=== PATIENT | male | born 1960 | race African-American/Black ===

== ENCOUNTER 2018-01-27 09:32 | Inpatient (IN) | payer MEDICAID ==
[~2018-01-27] VITALS: Ht 188 cm; Wt 130.6 kg
[2018-01-27 10:06] VITALS: BP 161/81
[2018-01-27] MEDS ORDERED: OXYC-522 PO (10:23)
[2018-01-27] MEDS ORDERED: QUET100T PO (10:23)
[2018-01-27] MEDS ORDERED: QUET200T PO (10:23)
[2018-01-27] MEDS ORDERED: AMLO-512 PO (10:23)
[2018-01-27] MEDS ORDERED: GABA-529 PO (10:23)
[2018-01-27] MEDS ORDERED: LISI-662 PO (10:23)
[2018-01-27] MEDS ORDERED: MULT-1192 PO (10:23)
[2018-01-27] MEDS ORDERED: ATOR40TA28 PO (10:23)
[2018-01-27] MEDS ORDERED: METO-558 PO (10:23)
[2018-01-27] MEDS ORDERED: DOCU250C91 PO (10:23)
[2018-01-27] MEDS ORDERED: FERR-89 PO (10:23)
[2018-01-27] MEDS ORDERED: ZOLP10TA7 PO (10:23)
[2018-01-27] MEDS ORDERED: METF500T6 PO (10:23)
[2018-01-27] MEDS ORDERED: CARI350 PO (10:23)
[2018-01-27] MEDS ORDERED: QUEtiapine FUMARATE 100 MG TABLET PO PRN (10:30)
[2018-01-27] MEDS ORDERED: ALBUTEROL SULFATE HFA 90 MCG/PUFF 8 GM INHALER IH PRN (12:00)
[2018-01-27] MEDS ORDERED: PETROLATUM,WHITE 71 GM JELLY TP PRN (12:00)
[2018-01-27] MEDS ORDERED: BENZOCAINE/MENTHOL LOZENGE MM PRN (12:00)
[2018-01-27] MEDS ORDERED: MAG HYDROX/AL HYDROX/SIMETH ES 30 ML SUSPENSION UDCUP PO PRN (12:00)
[2018-01-27] MEDS ORDERED: ACETAMINOPHEN 325 MG TABLET PO PRN (12:00)
[2018-01-27] MEDS ORDERED: LOPERAMIDE HCL 2 MG CAPSULE PO PRN (12:00)
[2018-01-27] MEDS ORDERED: MAGNESIUM HYDROXIDE SUSPENSION 30 ML UDCUP PO PRN (12:00)
[2018-01-27] MEDS ORDERED: BACITRACIN 28.4 GM OINTMENT TP PRN (12:00)
[2018-01-27] MEDS ORDERED: ONDANSETRON HCL 4 MG TABLET PO PRN (12:00)
[2018-01-27] MEDS ORDERED: CloNIDine HCL 0.1 MG TABLET PO PRN (12:00)
[2018-01-27 12:32] VITALS: BP 122/59
[2018-01-27] MEDS: QUEtiapine FUMARATE 100 MG TABLET PO SCH (12:53)
[2018-01-27] MEDS: LORazepam 2 MG TABLET PO PRN (13:26)
[2018-01-27] MEDS: OxyCODONE HCL/ACETAMINOPHEN 10-325 MG TABLET PO PRN ×2 (14:55→20:14)
[2018-01-27 14:57] VITALS: BP 140/91
[2018-01-27 16:12] VITALS: BP 156/97
[2018-01-27] MEDS: CARISOPRODOL 350 MG TABLET PO PRN (16:12)
[2018-01-27] MEDS: GABAPENTIN 100 MG CAPSULE PO SCH (16:12)
[2018-01-27] MEDS ORDERED: CARISOPRODOL 350 MG TABLET PO SCH (17:00)
[2018-01-27] MEDS: FERROUS SULFATE 325 MG EC TABLET PO SCH (17:07)
[2018-01-27] MEDS: MetFORMIN HCL 500 MG TABLET PO SCH (17:07)
[2018-01-27 17:12] VITALS: BP 130/60
[2018-01-27] MEDS: QUEtiapine FUMARATE 300 MG TABLET PO SCH (20:14)
[2018-01-27] MEDS: ZOLPIDEM TARTRATE 10 MG TABLET PO PRN (20:15)
[2018-01-28] VITALS (7 sets, daily range): BP systolic 114–147; BP diastolic 60–82
[2018-01-28] MEDS: LORazepam 2 MG TABLET PO PRN ×3 (00:13→16:14)
[2018-01-28] MEDS: CARISOPRODOL 350 MG TABLET PO PRN ×3 (05:33→21:00)
[2018-01-28] MEDS: OxyCODONE HCL/ACETAMINOPHEN 10-325 MG TABLET PO PRN ×4 (05:33→20:00)
[2018-01-28] MEDS: MetFORMIN HCL 500 MG TABLET PO SCH ×2 (06:58→16:54)
[2018-01-28] MEDS: FERROUS SULFATE 325 MG EC TABLET PO SCH ×2 (06:58→16:55)
[2018-01-28 08:52] LABS: BASOPHILS % (AUTO) 0.9 % (0.0-2.0); EOSINOPHILS % (AUTO) 2.5 % (1.0-6.0); HEMATOCRIT 37.4 % (41-53); HEMOGLOBIN 12.5 g/dL (13.5-17.5); LYMPHOCYTES # (AUTO) 3.1 K/uL (1.0-4.8); LYMPHOCYTES % (AUTO) 34.1 % (22.0-44.0); MEAN CORPUSCULAR HEMOGLOBIN 30.5 pg (26.0-34.0); MEAN CORPUSCULAR HGB CONC 33.3 G/dL (31.0-37.0); MEAN CORPUSCULAR VOLUME 92 fL (80-100); MONOCYTES # (AUTO) 0.3 K/uL (0.1-1.0); MONOCYTES % (AUTO) 3.9 % (2.0-9.0); NEUTROPHILS # (AUTO) 5.3 K/uL (1.8-7.7); NEUTROPHILS % (AUTO) 58.6 % (40.0-70.0); PLATELET COUNT (AUTO) 354 K/uL (150-450); RED BLOOD CELL COUNT(AUTO) 4.08 MIL/uL (4.50-5.90); RED CELL DISTRIBUTION WIDTH 13.6 % (11.5-14.5)
[2018-01-28] MEDS: QUEtiapine FUMARATE 100 MG TABLET PO SCH (08:57)
[2018-01-28] MEDS: GABAPENTIN 100 MG CAPSULE PO SCH ×3 (08:57→16:14)
[2018-01-28] MEDS: DOCUSATE SODIUM 250 MG CAPSULE PO SCH (08:57)
[2018-01-28] MEDS: OMEPRAZOLE 20 MG CAPSULE PO SCH (08:57)
[2018-01-28] MEDS: AmLODIPine BESYLATE 10 MG TABLET PO SCH (08:57)
[2018-01-28] MEDS: MULTIVITAMINS WITH MINERALS, THERAPEUTIC TABLET PO SCH (08:57)
[2018-01-28] MEDS: LISINOPRIL 20 MG TABLET PO SCH (08:57)
[2018-01-28] MEDS: ATORVASTATIN CALCIUM 40 MG TABLET PO SCH (08:58)
[2018-01-28] MEDS: METOPROLOL SUCCINATE 50 MG ER TABLET PO SCH (08:58)
[2018-01-28] MEDS ORDERED: DOCUSATE SODIUM 100 MG CAPSULE PO SCH (09:00)
[2018-01-28 09:08] LABS: HEMOGLOBIN A1C 5.6 % (4.5-6.2)
[2018-01-28] MEDS ORDERED: NICOTINE POLACRILEX 2 MG LOZENGE PO PRN (09:15)
[2018-01-28 09:20] LABS: ALANINE AMINOTRANSFERASE 24 U/L (12-78); ALBUMIN 3.8 g/dL (3.4-5.0); ALKALINE PHOSPHATASE 130 U/L (46-116); ANION GAP 10 mmol/L (8-16); ASPARTATE AMINOTRANSFERASE 17 U/L (15-37); BILIRUBIN,TOTAL 0.4 mg/dL (0.1-1.0); CALCIUM, TOTAL 8.8 mg/dL (8.8-10.5); CARBON DIOXIDE 25 mmol/L (22-29); CHLORIDE 103 mmol/L (98-107); CHOL/HDL RATIO 4.3 (4.2-7.3); CHOLESTEROL 155 mg/dL (131-200); CREATININE 1.24 mg/dL (0.60-1.30); FREE T4 (FREE THYROXINE) 0.71 ng/dL (0.76-1.46); GLOMERULAR FILTR. RATE CALC > 60 mL/min (>60); GLUCOSE,RANDOM 125 mg/dL (70-110); HDL CHOLESTEROL 36 mg/dL (40-60); LDL CHOL (CALC.) 95 mg/dL (0-130); POTASSIUM 3.9 mmol/L (3.5-5.1); SODIUM SERUM 138 mmol/L (136-145); THYROID STIMULATING HORMONE 1.46 uIU/mL (0.36-3.74); TOTAL PROTEIN, SERUM 7.8 g/dL (6.4-8.2); TRIGLYCERIDES 121 mg/dL (15-150); UREA NITROGEN, BLOOD 9 mg/dL (7-18)
[2018-01-28] MEDS: QUEtiapine FUMARATE 300 MG TABLET PO SCH (20:00)
[2018-01-28] MEDS: ZOLPIDEM TARTRATE 10 MG TABLET PO PRN (20:59)
[2018-01-29] VITALS: BP 145/87
[2018-01-29] MEDS: LORazepam 2 MG TABLET PO PRN ×2 (00:07→09:00)
[2018-01-29] MEDS: OxyCODONE HCL/ACETAMINOPHEN 10-325 MG TABLET PO PRN ×2 (03:12→08:11)
[2018-01-29] MEDS: CARISOPRODOL 350 MG TABLET PO PRN ×2 (05:29→10:37)
[2018-01-29] MEDS: FERROUS SULFATE 325 MG EC TABLET PO SCH (07:12)
[2018-01-29] MEDS: MetFORMIN HCL 500 MG TABLET PO SCH (07:13)
[2018-01-29] MEDS: LISINOPRIL 20 MG TABLET PO SCH (08:11)
[2018-01-29] MEDS: AmLODIPine BESYLATE 10 MG TABLET PO SCH (08:11)
[2018-01-29] MEDS: OMEPRAZOLE 20 MG CAPSULE PO SCH (08:11)
[2018-01-29] MEDS: DOCUSATE SODIUM 250 MG CAPSULE PO SCH (08:11)
[2018-01-29] MEDS: GABAPENTIN 100 MG CAPSULE PO SCH (08:11)
[2018-01-29] MEDS: METOPROLOL SUCCINATE 50 MG ER TABLET PO SCH (08:11)
[2018-01-29] MEDS: QUEtiapine FUMARATE 100 MG TABLET PO SCH (08:11)
[2018-01-29] MEDS: ATORVASTATIN CALCIUM 40 MG TABLET PO SCH (08:11)
[2018-01-29] MEDS: MULTIVITAMINS WITH MINERALS, THERAPEUTIC TABLET PO SCH (08:12)
[2018-01-29 08:14] VITALS: BP 151/95
[2018-01-29 10:37] VITALS: BP 138/84
[2018-01-29] MEDS ORDERED: METO-558 PO (11:20)
[2018-01-29] MEDS ORDERED: FERR-89 PO (11:20)
[2018-01-29] MEDS ORDERED: QUET300T2 PO (11:20)
[2018-01-29] MEDS ORDERED: ATOR40TA28 PO (11:20)
== END 2018-01-29 12:20 | disposition home or self-care (01) | DRG 750 ==
LOC: B3A 10:37 → B2S 12:21
PROVIDERS: ATTEND Psychiatry & Neurology Child & Adolescent Psychiatry
DX: F20.0 Paranoid schizophrenia (principal); I10 Essential (primary) hypertension; E55.9 Vitamin D deficiency, unspecified; E66.9 Obesity, unspecified; F17.200 Nicotine dependence, unspecified, uncomplicated; G89.29 Other chronic pain; J44.9 Chronic obstructive pulmonary disease, unspecified; K21.9 Gastro-esophageal reflux disease without esophagitis; K59.00 Constipation, unspecified; F41.9 Anxiety disorder, unspecified; Z88.8 Allergy status to other drugs, medicaments and biological substances
CPT/HCPCS: 82306; 83036; 84439; 84443

== ENCOUNTER 2018-12-07 13:26 | Inpatient (IN) | payer MEDICAID ==
[~2018-12-07] VITALS: Ht 188 cm; Wt 133.9 kg
[~2018-12-07 13:26] MED LIST: AMLO-512 PO; ATOR40TA28 PO; FERR-89 PO; GABA-529 PO; LISI-662 PO; METF-960 PO; METO-558 PO; QUET100T PO; QUET300T2 PO
[2018-12-07] MEDS ORDERED: QUET300T2 PO ×2 (14:47)
[2018-12-07] MEDS ORDERED: VITAD50000 PO (14:47)
[2018-12-07] MEDS ORDERED: METO-558 PO (14:47)
[2018-12-07] MEDS ORDERED: METF-960 PO (14:47)
[2018-12-07] MEDS ORDERED: LISI-662 PO (14:47)
[2018-12-07] MEDS ORDERED: AMLO-511 PO (14:47)
[2018-12-07] MEDS ORDERED: ASPI81 PO (14:48)
[2018-12-07] MEDS ORDERED: LORA10TA7 PO (14:48)
[2018-12-07] MEDS ORDERED: DOCU250C91 PO (14:48)
[2018-12-07] MEDS ORDERED: MULT-1203 PO (14:48)
[2018-12-07 14:52] VITALS: BP 163/95
[2018-12-07] MEDS ORDERED: QUEtiapine FUMARATE 100 MG TABLET PO PRN (15:00)
[2018-12-07] MEDS ORDERED: OXYC-43 PO (15:58)
[2018-12-07 16:24] VITALS: BP 169/86
[2018-12-07 17:35] VITALS: BP 167/88
[2018-12-07] MEDS: OxyCODONE HCL/ACETAMINOPHEN 10-325 MG TABLET PO PRN (17:36)
[2018-12-07] MEDS: GABAPENTIN 100 MG CAPSULE PO SCH (17:36)
[2018-12-07] MEDS ORDERED: GLUCAGON,HUMAN RECOMBINANT 1 MG VIAL IM PRN (18:15)
[2018-12-07] MEDS ORDERED: INSULIN LISPRO 100 UNITS/ML SQ PRN (18:15)
[2018-12-07] MEDS: AmLODIPine BESYLATE 5 MG TABLET PO SCH (19:15)
[2018-12-07] MEDS: LISINOPRIL 20 MG TABLET PO SCH (19:15)
[2018-12-07] MEDS: QUEtiapine FUMARATE 300 MG TABLET PO SCH (20:13)
[2018-12-07] MEDS ORDERED: BENZOCAINE/MENTHOL LOZENGE MM PRN (20:30)
[2018-12-07] MEDS ORDERED: CloNIDine HCL 0.1 MG TABLET PO PRN (20:30)
[2018-12-07] MEDS ORDERED: LOPERAMIDE HCL 2 MG CAPSULE PO PRN (20:30)
[2018-12-07] MEDS ORDERED: PETROLATUM,WHITE 28 GM JELLY TP PRN (20:30)
[2018-12-07] MEDS ORDERED: MAG HYDROX/AL HYDROX/SIMETH ES 30 ML SUSPENSION UDCUP PO PRN (20:30)
[2018-12-07] MEDS ORDERED: ONDANSETRON HCL 4 MG TABLET PO PRN (20:30)
[2018-12-07] MEDS ORDERED: ACETAMINOPHEN 325 MG TABLET PO PRN (20:30)
[2018-12-07] MEDS ORDERED: BACITRACIN 28.4 GM OINTMENT TP PRN (20:30)
[2018-12-07] MEDS ORDERED: ALBUTEROL SULFATE HFA 90 MCG/PUFF 8 GM INHALER IH PRN (20:30)
[2018-12-07] MEDS ORDERED: MAGNESIUM HYDROXIDE SUSPENSION 30 ML UDCUP PO PRN (20:30)
[2018-12-07] MEDS: ZOLPIDEM TARTRATE 10 MG TABLET PO PRN (20:49)
[2018-12-07 23:14] VITALS: BP 122/66
[2018-12-08 01:45] VITALS: BP 153/100
[2018-12-08] MEDS: OxyCODONE HCL/ACETAMINOPHEN 10-325 MG TABLET PO PRN ×5 (01:58→21:38)
[2018-12-08] MEDS: MetFORMIN HCL 500 MG TABLET PO SCH (07:00)
[2018-12-08 08:18] LABS: BASOPHILS % (AUTO) 0.8 % (0.0-2.0); EOSINOPHILS % (AUTO) 3.8 % (1.0-6.0); HEMOGLOBIN 12.7 g/dL (13.5-17.5); LYMPHOCYTES # (AUTO) 2.7 K/uL (1.0-4.8); LYMPHOCYTES % (AUTO) 29.3 % (22.0-44.0); MEAN CORPUSCULAR HEMOGLOBIN 30.4 pg (26.0-34.0); MEAN CORPUSCULAR HGB CONC 32.7 G/dL (31.0-37.0); MEAN CORPUSCULAR VOLUME 93 fL (80-100); MONOCYTES # (AUTO) 0.5 K/uL (0.1-1.0); MONOCYTES % (AUTO) 5.8 % (2.0-9.0); NEUTROPHILS # (AUTO) 5.5 K/uL (1.8-7.7); NEUTROPHILS % (AUTO) 60.3 % (40.0-70.0); PLATELET COUNT (AUTO) 373 K/uL (150-450); RED CELL DISTRIBUTION WIDTH 14.1 % (11.5-14.5)
[2018-12-08] MEDS: LISINOPRIL 20 MG TABLET PO SCH (08:18)
[2018-12-08] MEDS: OMEPRAZOLE 20 MG CAPSULE PO SCH (08:18)
[2018-12-08] MEDS: QUEtiapine FUMARATE 300 MG TABLET PO SCH ×2 (08:18→20:18)
[2018-12-08] MEDS: METOPROLOL SUCCINATE 50 MG ER TABLET PO SCH ×2 (08:18→16:14)
[2018-12-08] MEDS: MULTIVITAMINS WITH MINERALS, THERAPEUTIC TABLET PO SCH (08:18)
[2018-12-08] MEDS: LORATADINE 10 MG TABLET PO SCH (08:19)
[2018-12-08] MEDS: GABAPENTIN 100 MG CAPSULE PO SCH ×3 (08:20→16:14)
[2018-12-08] MEDS: ATORVASTATIN CALCIUM 40 MG TABLET PO SCH (08:20)
[2018-12-08] MEDS: AmLODIPine BESYLATE 5 MG TABLET PO SCH (08:20)
[2018-12-08 08:22] VITALS: BP 131/73
[2018-12-08 08:24] VITALS: BP 131/81
[2018-12-08 08:32] LABS: APPEARANCE,URINE CLEAR (CLEAR); BILIRUBIN,URINE NEGATIVE (NEGATIVE); GLUCOSE, URINE (UA) NEGATIVE (NEGATIVE); KETONES,URINE NEGATIVE (NEGATIVE); LEUKOCYTE ESTERASE ,URINE NEGATIVE (NEGATIVE); NITRATE,URINE NEGATIVE (NEGATIVE); OCCULT BLOOD,URINE NEGATIVE (NEGATIVE); PROTEIN,URINE POS 1+ (NEGATIVE); UROBILINOGEN,URINE 0.2 mg/dL (<=1.0)
[2018-12-08 08:38] LABS: HEMOGLOBIN A1C 5.3 % (4.5-6.2)
[2018-12-08 08:39] LABS: AMPHET/METH SCREEN,URINE NEGATIVE (NEGATIVE); BARBITURATE SCREEN, URINE NEGATIVE (NEGATIVE); BENZODIAZEPINES SCREEN,URINE POSITIVE (NEGATIVE); CANNABINOID SCREEN,URINE POSITIVE (NEGATIVE); COCAINE SCREEN,URINE NEGATIVE (NEGATIVE); METHADONE SCREEN, URINE NEGATIVE (NEGATIVE); OPIATE SCREEN,URINE POSITIVE (NEGATIVE)
[2018-12-08 08:41] LABS: PHENCYCLIDINE SCREEN,URINE NEGATIVE (NEGATIVE)
[2018-12-08 08:56] LABS: ALANINE AMINOTRANSFERASE 25 U/L (12-78); ALBUMIN 3.7 g/dL (3.4-5.0); ALKALINE PHOSPHATASE 150 U/L (46-116); ANION GAP 12 mmol/L (8-16); ASPARTATE AMINOTRANSFERASE 21 U/L (15-37); BILIRUBIN,TOTAL 0.4 mg/dL (0.1-1.0); CALCIUM, TOTAL 9.5 mg/dL (8.8-10.5); CARBON DIOXIDE 26 mmol/L (22-29); CHLORIDE 102 mmol/L (98-107); CHOL/HDL RATIO 5.2 (4.2-7.3); CHOLESTEROL 212 mg/dL (131-200); CREATININE 1.41 mg/dL (0.60-1.30); GLOMERULAR FILTR. RATE CALC > 60 mL/min (>60); GLUCOSE,RANDOM 153 mg/dL (70-110); HDL CHOLESTEROL 41 mg/dL (40-60); LDL CHOL (CALC.) 139 mg/dL (0-130); POTASSIUM 3.9 mmol/L (3.5-5.1); SODIUM SERUM 140 mmol/L (136-145); THYROID STIMULATING HORMONE 1.59 uIU/mL (0.36-3.74); TOTAL PROTEIN, SERUM 7.9 g/dL (6.4-8.2); TRIGLYCERIDES 160 mg/dL (15-150); UREA NITROGEN, BLOOD 9 mg/dL (7-18)
[2018-12-08] MEDS ORDERED: LISINOPRIL 20 MG TABLET PO SCH (09:00)
[2018-12-08] MEDS: DOCUSATE SODIUM 250 MG CAPSULE PO SCH (09:00)
[2018-12-08 10:39] LABS: GLUCOMETER DEV NAME(LOC) BV2S.; GLUCOSE,POINT OF CARE 122 MG/DL (70-110)
[2018-12-08] MEDS: CARISOPRODOL 350 MG TABLET PO PRN ×3 (10:55→21:41)
[2018-12-08 16:26] VITALS: BP 144/88
[2018-12-08 20:49] LABS: GLUCOMETER DEV NAME(LOC) 3E.C; GLUCOSE,POINT OF CARE 129 MG/DL (70-110)
[2018-12-08] MEDS: ZOLPIDEM TARTRATE 10 MG TABLET PO PRN (21:39)
[2018-12-08 21:41] VITALS: BP 141/82
[2018-12-09] VITALS (10 sets, daily range): BP systolic 121–147; BP diastolic 70–88
[2018-12-09] MEDS: OxyCODONE HCL/ACETAMINOPHEN 10-325 MG TABLET PO PRN ×5 (01:43→20:51)
[2018-12-09] MEDS: CARISOPRODOL 350 MG TABLET PO PRN ×3 (06:54→17:59)
[2018-12-09] MEDS: MetFORMIN HCL 500 MG TABLET PO SCH (06:57)
[2018-12-09] MEDS: ATORVASTATIN CALCIUM 40 MG TABLET PO SCH (08:46)
[2018-12-09] MEDS: DOCUSATE SODIUM 250 MG CAPSULE PO SCH (08:46)
[2018-12-09] MEDS: LORATADINE 10 MG TABLET PO SCH (08:46)
[2018-12-09] MEDS: LISINOPRIL 20 MG TABLET PO SCH (08:46)
[2018-12-09] MEDS: GABAPENTIN 100 MG CAPSULE PO SCH ×3 (08:46→16:03)
[2018-12-09] MEDS: OMEPRAZOLE 20 MG CAPSULE PO SCH (08:46)
[2018-12-09] MEDS: MULTIVITAMINS WITH MINERALS, THERAPEUTIC TABLET PO SCH (08:46)
[2018-12-09] MEDS: AmLODIPine BESYLATE 5 MG TABLET PO SCH (08:46)
[2018-12-09] MEDS: QUEtiapine FUMARATE 300 MG TABLET PO SCH ×2 (08:47→20:16)
[2018-12-09] MEDS: METOPROLOL SUCCINATE 50 MG ER TABLET PO SCH ×2 (08:47→16:38)
[2018-12-09 11:20] LABS: GLUCOMETER DEV NAME(LOC) 3E.I; GLUCOSE,POINT OF CARE 125 MG/DL (70-110)
[2018-12-09] MEDS: ZOLPIDEM TARTRATE 10 MG TABLET PO PRN (20:16)
[2018-12-10 01:49] VITALS: BP 145/84
[2018-12-10] MEDS: OxyCODONE HCL/ACETAMINOPHEN 10-325 MG TABLET PO PRN ×3 (01:55→10:04)
[2018-12-10] MEDS: CARISOPRODOL 350 MG TABLET PO PRN ×2 (05:02→11:42)
[2018-12-10 05:24] LABS: GLUCOMETER DEV NAME(LOC) 3E.I; GLUCOSE,POINT OF CARE 103 MG/DL (70-110)
[2018-12-10] MEDS: MetFORMIN HCL 500 MG TABLET PO SCH (06:37)
[2018-12-10] MEDS: GABAPENTIN 100 MG CAPSULE PO SCH (08:17)
[2018-12-10] MEDS: OMEPRAZOLE 20 MG CAPSULE PO SCH (08:17)
[2018-12-10] MEDS: LORATADINE 10 MG TABLET PO SCH (08:17)
[2018-12-10] MEDS: MULTIVITAMINS WITH MINERALS, THERAPEUTIC TABLET PO SCH (08:17)
[2018-12-10] MEDS: LISINOPRIL 20 MG TABLET PO SCH (08:17)
[2018-12-10] MEDS: QUEtiapine FUMARATE 300 MG TABLET PO SCH (08:18)
[2018-12-10] MEDS: METOPROLOL SUCCINATE 50 MG ER TABLET PO SCH (08:18)
[2018-12-10] MEDS: ATORVASTATIN CALCIUM 40 MG TABLET PO SCH (08:18)
[2018-12-10] MEDS: DOCUSATE SODIUM 250 MG CAPSULE PO SCH (08:18)
[2018-12-10] MEDS: AmLODIPine BESYLATE 5 MG TABLET PO SCH (08:18)
[2018-12-10 08:32] VITALS: BP 145/70
[2018-12-10 10:04] VITALS: BP 142/75
[2018-12-10] MEDS ORDERED: OMEP10CA41 PO (10:38)
[2018-12-10] MEDS ORDERED: MULT1CAP36 PO (10:38)
[2018-12-10 11:28] LABS: GLUCOMETER DEV NAME(LOC) 3E.I; GLUCOSE,POINT OF CARE 120 MG/DL (70-110)
[2018-12-10 11:42] VITALS: BP 161/82
== END 2018-12-10 12:05 | disposition home or self-care (01) | DRG 750 ==
LOC: B2S 15:55 → 3EI 12-08 18:15
PROVIDERS: ADMIT Psychiatry & Neurology Child & Adolescent Psychiatry; ATTEND Psychiatry & Neurology Child & Adolescent Psychiatry
DX: F25.1 Schizoaffective disorder, depressive type (principal); E11.9 Type 2 diabetes mellitus without complications; E55.9 Vitamin D deficiency, unspecified; E66.9 Obesity, unspecified; F17.200 Nicotine dependence, unspecified, uncomplicated; G89.29 Other chronic pain; I10 Essential (primary) hypertension; F12.10 Cannabis abuse, uncomplicated; J44.9 Chronic obstructive pulmonary disease, unspecified; K21.9 Gastro-esophageal reflux disease without esophagitis; M54.9 Dorsalgia, unspecified; K59.00 Constipation, unspecified; Z91.5 Personal history of self-harm; Z68.37 Body mass index [BMI] 37.0-37.9, adult; Z88.8 Allergy status to other drugs, medicaments and biological substances; Z79.899 Other long term (current) drug therapy; Z79.82 Long term (current) use of aspirin; Z71.6 Tobacco abuse counseling
CPT/HCPCS: 80307; 83036; 84439; 84443

== ENCOUNTER 2019-06-20 09:02 | Inpatient (IN) | payer MEDICAID ==
[~2019-06-20] VITALS: Ht 188 cm; Wt 126.1 kg
[~2019-06-20 09:02] MED LIST changes: -AMLO-512 PO; +AMLO5TAB9 PO; +ASPI81 PO; +DOCU-342 PO; -FERR-89 PO; +LORA10TA7 PO; +MULT1CAP36 PO; +OMEP10CA5 PO; -QUET100T PO; +VITAD50000 PO
[2019-06-20 09:20] VITALS: BP 136/72
[2019-06-20] MEDS ORDERED: QUEtiapine FUMARATE 100 MG TABLET PO PRN (09:45)
[2019-06-20 10:30] VITALS: BP 154/78
[2019-06-20] MEDS ORDERED: QUEtiapine FUMARATE 300 MG TABLET PO SCH ×2 (10:30→21:00)
[2019-06-20] MEDS: LORazepam 2 MG TABLET PO PRN ×2 (10:39→16:13)
[2019-06-20 11:10] LABS: GLUCOMETER DEV NAME(LOC) BV2S.; GLUCOSE,POINT OF CARE 79 MG/DL (70-110)
[2019-06-20] MEDS ORDERED: INFLUENZA VIRUS VACCINE QVS 2019-20 (3YR+)/PF 60 MCG/0.5 ML SYRINGE IM ONE (11:30)
[2019-06-20] MEDS ORDERED: ALBUTEROL SULFATE HFA 90 MCG/PUFF 8 GM INHALER IH PRN (11:45)
[2019-06-20] MEDS ORDERED: PETROLATUM,WHITE 28 GM JELLY TP PRN (11:45)
[2019-06-20] MEDS ORDERED: BACITRACIN 28.4 GM OINTMENT TP PRN (11:45)
[2019-06-20] MEDS ORDERED: IBUPROFEN 600 MG TABLET PO PRN (11:45)
[2019-06-20] MEDS ORDERED: ONDANSETRON HCL 4 MG TABLET PO PRN (11:45)
[2019-06-20] MEDS ORDERED: BENZOCAINE/MENTHOL LOZENGE MM PRN (11:45)
[2019-06-20] MEDS ORDERED: MAGNESIUM HYDROXIDE SUSPENSION 30 ML UDCUP PO PRN (11:45)
[2019-06-20] MEDS ORDERED: CloNIDine HCL 0.1 MG TABLET PO PRN (11:45)
[2019-06-20] MEDS ORDERED: ACETAMINOPHEN 325 MG TABLET PO PRN (11:45)
[2019-06-20] MEDS ORDERED: LOPERAMIDE HCL 2 MG CAPSULE PO PRN (11:45)
[2019-06-20] MEDS ORDERED: MAG HYDROX/AL HYDROX/SIMETH ES 30 ML SUSPENSION UDCUP PO PRN (11:45)
[2019-06-20 12:58] VITALS: BP 147/72
[2019-06-20] MEDS: GABAPENTIN 300 MG CAPSULE PO SCH ×2 (12:58→16:13)
[2019-06-20] MEDS: OxyCODONE HCL/ACETAMINOPHEN 10-325 MG TABLET PO PRN ×2 (12:58→17:12)
[2019-06-20 16:00] VITALS: BP 140/60
[2019-06-20] MEDS: METOPROLOL SUCCINATE 50 MG ER TABLET PO SCH (16:13)
[2019-06-20 17:12] VITALS: BP 145/72
[2019-06-20] MEDS: ATORVASTATIN CALCIUM 40 MG TABLET PO SCH (20:11)
[2019-06-20] MEDS: ZOLPIDEM TARTRATE 10 MG TABLET PO PRN (20:45)
[2019-06-20] MEDS ORDERED: QUEtiapine FUMARATE 200 MG TABLET PO SCH (21:00)
[2019-06-21 00:06] VITALS: BP 153/91
[2019-06-21] MEDS: LORazepam 2 MG TABLET PO PRN ×4 (00:06→16:32)
[2019-06-21] MEDS: OxyCODONE HCL/ACETAMINOPHEN 10-325 MG TABLET PO PRN ×5 (00:07→20:20)
[2019-06-21 04:50] VITALS: BP 146/86
[2019-06-21] MEDS: MetFORMIN HCL 500 MG TABLET PO SCH (06:59)
[2019-06-21] MEDS: OMEPRAZOLE 20 MG CAPSULE PO SCH (08:13)
[2019-06-21] MEDS: LISINOPRIL 20 MG TABLET PO SCH (08:13)
[2019-06-21] MEDS: METOPROLOL SUCCINATE 50 MG ER TABLET PO SCH ×2 (08:14→16:11)
[2019-06-21] MEDS: LORATADINE 10 MG TABLET PO SCH (08:14)
[2019-06-21] MEDS: QUEtiapine FUMARATE 200 MG TABLET PO SCH (08:14)
[2019-06-21] MEDS: AmLODIPine BESYLATE 5 MG TABLET PO SCH (08:14)
[2019-06-21] MEDS: DOCUSATE SODIUM 100 MG CAPSULE PO SCH (08:14)
[2019-06-21] MEDS: GABAPENTIN 300 MG CAPSULE PO SCH ×3 (08:14→16:11)
[2019-06-21 08:25] VITALS: BP 131/61
[2019-06-21 15:42] VITALS: BP 138/79
[2019-06-21 16:20] VITALS: BP 138/79
[2019-06-21] MEDS: ATORVASTATIN CALCIUM 40 MG TABLET PO SCH (20:18)
[2019-06-21 20:20] VITALS: BP 135/80
[2019-06-21] MEDS: ZOLPIDEM TARTRATE 10 MG TABLET PO PRN (20:20)
[2019-06-21] MEDS ORDERED: QUEtiapine FUMARATE 300 MG TABLET PO SCH (21:00)
[2019-06-22] MEDS: LORazepam 2 MG TABLET PO PRN ×2 (01:03→05:39)
[2019-06-22] MEDS: OxyCODONE HCL/ACETAMINOPHEN 10-325 MG TABLET PO PRN ×2 (01:04→05:39)
[2019-06-22 01:08] VITALS: BP 159/80
[2019-06-22] MEDS: MetFORMIN HCL 500 MG TABLET PO SCH (07:00)
[2019-06-22 08:16] VITALS: BP 139/79
[2019-06-22] MEDS: DOCUSATE SODIUM 100 MG CAPSULE PO SCH (08:28)
[2019-06-22] MEDS: METOPROLOL SUCCINATE 50 MG ER TABLET PO SCH (08:28)
[2019-06-22] MEDS: GABAPENTIN 300 MG CAPSULE PO SCH (08:28)
[2019-06-22] MEDS: OMEPRAZOLE 20 MG CAPSULE PO SCH (08:29)
[2019-06-22] MEDS: QUEtiapine FUMARATE 200 MG TABLET PO SCH (08:29)
[2019-06-22] MEDS: AmLODIPine BESYLATE 5 MG TABLET PO SCH (08:29)
[2019-06-22] MEDS: LISINOPRIL 20 MG TABLET PO SCH (08:29)
[2019-06-22] MEDS: LORATADINE 10 MG TABLET PO SCH (08:29)
[2019-06-22] MEDS ORDERED: QUET200T PO (10:30)
[2019-06-22] MEDS ORDERED: DOCU-275 PO (10:33)
[2019-06-22] MEDS ORDERED: ATOR40TA28 PO (10:33)
[2019-06-22] MEDS ORDERED: GABA-531 PO (10:34)
[2019-06-22] MEDS ORDERED: OMEP20 PO (10:36)
[2019-06-27] MEDS ORDERED: CHOLECALCIFEROL (VIT D3) 50,000 UNITS CAPSULE PO SCH (09:00)
== END 2019-06-22 12:00 | disposition home or self-care (01) | DRG 750 ==
LOC: B2S 10:10
PROVIDERS: ADMIT Psychiatry & Neurology Psychiatry; ATTEND Psychiatry & Neurology Psychiatry
DX: F25.1 Schizoaffective disorder, depressive type (principal); E11.9 Type 2 diabetes mellitus without complications; R45.851 Suicidal ideations; F41.9 Anxiety disorder, unspecified; G47.00 Insomnia, unspecified; I10 Essential (primary) hypertension; K59.00 Constipation, unspecified; K21.9 Gastro-esophageal reflux disease without esophagitis; R45.87 Impulsiveness; Z79.899 Other long term (current) drug therapy

== ENCOUNTER 2021-11-12 09:21 | Inpatient (IN) | payer MEDICAID, OTHER ==
[~2021-11-12] VITALS: Ht 188 cm; Wt 287.7 kg
[~2021-11-12 09:21] MED LIST changes: +AMLO-257 PO; -AMLO5TAB9 PO; -ASPI81 PO; -DOCU-342 PO; +DOCU-385 PO; +GABA-1181 PO; -GABA-529 PO; -LISI-662 PO; +LISI-894 PO; +METF-1211 PO; -METF-960 PO; -MULT1CAP36 PO; -OMEP10CA5 PO; +OMEP20 PO; +QUET200T PO; -VITAD50000 PO
[2021-11-12] MEDS ORDERED: LORazepam 2 MG TABLET PO ONE (11:00)
[2021-11-12 12:04] LABS: BASOPHILS % (AUTO) 1.2 % (0.0-2.0); EOSINOPHILS % (AUTO) 1.7 % (1.0-6.0); HEMATOCRIT 37.9 % (41-53); LYMPHOCYTES # (AUTO) 2.6 K/uL (1.0-4.8); LYMPHOCYTES % (AUTO) 26.5 % (22.0-44.0); MEAN CORPUSCULAR HGB CONC 34.3 G/dL (31.0-37.0); MEAN CORPUSCULAR VOLUME 90 fL (80-100); MONOCYTES # (AUTO) 0.9 K/uL (0.1-1.0); MONOCYTES % (AUTO) 9.2 % (2.0-9.0); NEUTROPHILS % (AUTO) 61.4 % (40.0-70.0); PLATELET COUNT (AUTO) 373 K/uL (150-450); RED BLOOD CELL COUNT(AUTO) 4.19 MIL/uL (4.50-5.90); RED CELL DISTRIBUTION WIDTH 13.5 % (11.5-14.5)
[2021-11-12 12:08] LABS: ALANINE AMINOTRANSFERASE 21 U/L (12-78); ALBUMIN 3.7 g/dL (3.4-5.0); ALKALINE PHOSPHATASE 142 U/L (46-116); ANION GAP 12 mmol/L (8-16); ASPARTATE AMINOTRANSFERASE 14 U/L (15-37); BILIRUBIN,TOTAL 0.4 mg/dL (0.1-1.0); CALCIUM, TOTAL 9.6 mg/dL (8.8-10.5); CARBON DIOXIDE 27 mmol/L (22-29); CHLORIDE 99 mmol/L (98-107); CREATININE 1.86 mg/dL (0.60-1.30); GLOMERULAR FILTR. RATE CALC 45 mL/min (>60); GLUCOSE,RANDOM 110 mg/dL (70-110); POTASSIUM 3.7 mmol/L (3.5-5.1); SODIUM SERUM 138 mmol/L (136-145); UREA NITROGEN, BLOOD 18 mg/dL (7-18)
[2021-11-12 12:09] LABS: AMPHET/METH SCREEN,URINE NEGATIVE (NEGATIVE); BARBITURATE SCREEN, URINE NEGATIVE (NEGATIVE); BENZODIAZEPINES SCREEN,URINE NEGATIVE (NEGATIVE); CANNABINOID SCREEN,URINE POSITIVE (NEGATIVE); COCAINE SCREEN,URINE NEGATIVE (NEGATIVE); METHADONE SCREEN, URINE NEGATIVE (NEGATIVE); OPIATE SCREEN,URINE NEGATIVE (NEGATIVE)
[2021-11-12 12:23] LABS: COVID AG,FIA SOURCE NASOPHARYNGEAL
[2021-11-12] MEDS ORDERED: QUEtiapine FUMARATE 100 MG TABLET PO PRN (12:30)
[2021-11-12] MEDS ORDERED: QUEtiapine FUMARATE 100 MG TABLET PO ONE (12:45)
[2021-11-12 12:49] LABS: PHENCYCLIDINE SCREEN,URINE NEGATIVE (NEGATIVE)
[2021-11-12 16:58] VITALS: BP 151/97
[2021-11-12] MEDS: OxyCODONE HCL/ACETAMINOPHEN 10-325 MG TABLET PO PRN ×2 (16:58→20:58)
[2021-11-12] MEDS: METOPROLOL TARTRATE 50 MG TABLET PO SCH (17:41)
[2021-11-12] MEDS: CARISOPRODOL 350 MG TABLET PO PRN (17:41)
[2021-11-12] MEDS: ZOLPIDEM TARTRATE 10 MG TABLET PO PRN (20:35)
[2021-11-12 20:58] VITALS: BP 146/70
[2021-11-12] MEDS: ATORVASTATIN CALCIUM 40 MG TABLET PO SCH (21:18)
[2021-11-13 00:05] VITALS: BP 138/88
[2021-11-13] MEDS: LORazepam 2 MG TABLET PO PRN ×2 (00:07→11:48)
[2021-11-13] MEDS: OxyCODONE HCL/ACETAMINOPHEN 10-325 MG TABLET PO PRN ×5 (01:07→18:25)
[2021-11-13 09:06] VITALS: BP 141/63
[2021-11-13] MEDS: AmLODIPine BESYLATE 10 MG TABLET PO SCH (09:11)
[2021-11-13] MEDS: ASPIRIN 81 MG DR TABLET PO SCH (09:12)
[2021-11-13] MEDS: METOPROLOL TARTRATE 50 MG TABLET PO SCH ×2 (09:12→16:06)
[2021-11-13 09:16] VITALS: BP 141/63
[2021-11-13] MEDS: CARISOPRODOL 350 MG TABLET PO PRN ×3 (09:19→19:20)
[2021-11-13] MEDS: QUEtiapine FUMARATE 200 MG TABLET PO SCH (11:41)
[2021-11-13] MEDS ORDERED: IBUPROFEN 400 MG TABLET PO PRN (13:15)
[2021-11-13] MEDS ORDERED: NICOTINE 14 MG/24 HOUR PATCH TD PRN (13:15)
[2021-11-13] MEDS ORDERED: ALBUTEROL SULFATE HFA 90 MCG/PUFF 8 GM INHALER IH PRN (13:15)
[2021-11-13] MEDS ORDERED: MAGNESIUM HYDROXIDE SUSPENSION 30 ML UDCUP PO PRN (13:15)
[2021-11-13] MEDS ORDERED: ACETAMINOPHEN 325 MG TABLET PO PRN (13:15)
[2021-11-13] MEDS ORDERED: DOCUSATE SODIUM 100 MG CAPSULE PO PRN (13:15)
[2021-11-13] MEDS ORDERED: PETROLATUM,WHITE 28 GM JELLY TP PRN (13:15)
[2021-11-13] MEDS ORDERED: MAG HYDROX/AL HYDROX/SIMETH ES 30 ML SUSPENSION UDCUP PO PRN (13:15)
[2021-11-13] MEDS ORDERED: CloNIDine HCL 0.1 MG TABLET PO PRN (13:15)
[2021-11-13] MEDS ORDERED: ONDANSETRON HCL 4 MG TABLET PO PRN (13:15)
[2021-11-13] MEDS ORDERED: GuaiFENesin/D-METHORPHAN [SUGAR-FREE] 200-20MG/10 ML SYRUP UDCUP PO PRN (13:15)
[2021-11-13] MEDS ORDERED: LOPERAMIDE HCL 2 MG CAPSULE PO PRN (13:15)
[2021-11-13 13:58] VITALS: BP 146/81
[2021-11-13 17:17] VITALS: BP 115/69
[2021-11-13] MEDS: QUEtiapine FUMARATE 300 MG TABLET PO SCH (20:07)
[2021-11-13] MEDS: ATORVASTATIN CALCIUM 40 MG TABLET PO SCH (20:07)
[2021-11-13] MEDS: ZOLPIDEM TARTRATE 10 MG TABLET PO PRN (20:35)
[2021-11-14 03:36] VITALS: BP 118/74
[2021-11-14] MEDS: OxyCODONE HCL/ACETAMINOPHEN 10-325 MG TABLET PO PRN ×4 (03:36→17:14)
[2021-11-14 08:35] VITALS: BP 124/59
[2021-11-14] MEDS: AmLODIPine BESYLATE 10 MG TABLET PO SCH (08:35)
[2021-11-14] MEDS: QUEtiapine FUMARATE 200 MG TABLET PO SCH (08:35)
[2021-11-14] MEDS: METOPROLOL TARTRATE 50 MG TABLET PO SCH ×2 (08:35→16:30)
[2021-11-14] MEDS: ASPIRIN 81 MG DR TABLET PO SCH (08:35)
[2021-11-14] MEDS: CARISOPRODOL 350 MG TABLET PO PRN ×3 (08:36→17:57)
[2021-11-14] MEDS: LORazepam 2 MG TABLET PO PRN ×2 (11:20→16:30)
[2021-11-14 13:01] VITALS: BP 114/61
[2021-11-14 16:00] VITALS: BP 104/63
[2021-11-14 17:14] VITALS: BP 107/64
[2021-11-14] MEDS: QUEtiapine FUMARATE 300 MG TABLET PO SCH (20:00)
[2021-11-14] MEDS: ATORVASTATIN CALCIUM 40 MG TABLET PO SCH (20:00)
[2021-11-14] MEDS: ZOLPIDEM TARTRATE 10 MG TABLET PO PRN (20:10)
[2021-11-15 01:06] VITALS: BP 130/75
[2021-11-15] MEDS: OxyCODONE HCL/ACETAMINOPHEN 10-325 MG TABLET PO PRN ×5 (01:06→19:52)
[2021-11-15 05:40] VITALS: BP 128/84
[2021-11-15 08:00] VITALS: BP 125/68
[2021-11-15] MEDS: QUEtiapine FUMARATE 200 MG TABLET PO SCH (08:32)
[2021-11-15] MEDS: METOPROLOL TARTRATE 50 MG TABLET PO SCH ×2 (08:32→16:57)
[2021-11-15] MEDS: AmLODIPine BESYLATE 10 MG TABLET PO SCH (08:32)
[2021-11-15] MEDS: ASPIRIN 81 MG DR TABLET PO SCH (08:32)
[2021-11-15] MEDS: CARISOPRODOL 350 MG TABLET PO SCH ×3 (08:37→16:57)
[2021-11-15 13:47] VITALS: BP_SYST 142; BP_SYST 144; BP_DIAS 87; BP_DIAS 88
[2021-11-15] MEDS: LORazepam 2 MG TABLET PO PRN (15:53)
[2021-11-15 16:41] VITALS: BP 114/65
[2021-11-15 19:52] VITALS: BP 110/67
[2021-11-15] MEDS: QUEtiapine FUMARATE 300 MG TABLET PO SCH (20:00)
[2021-11-15] MEDS: ATORVASTATIN CALCIUM 40 MG TABLET PO SCH (20:00)
[2021-11-15] MEDS: ZOLPIDEM TARTRATE 10 MG TABLET PO PRN (20:15)
[2021-11-16 00:43] VITALS: BP 110/69
[2021-11-16] MEDS: OxyCODONE HCL/ACETAMINOPHEN 10-325 MG TABLET PO PRN ×5 (00:43→21:28)
[2021-11-16] MEDS: LORazepam 2 MG TABLET PO PRN ×2 (04:21→10:27)
[2021-11-16 04:23] VITALS: BP 120/76
[2021-11-16] MEDS: CARISOPRODOL 350 MG TABLET PO SCH ×3 (08:51→16:01)
[2021-11-16] MEDS: METOPROLOL TARTRATE 50 MG TABLET PO SCH ×2 (08:51→16:01)
[2021-11-16] MEDS: AmLODIPine BESYLATE 10 MG TABLET PO SCH (08:51)
[2021-11-16] MEDS: ASPIRIN 81 MG DR TABLET PO SCH (08:51)
[2021-11-16] MEDS: QUEtiapine FUMARATE 200 MG TABLET PO SCH (08:51)
[2021-11-16 08:53] VITALS: BP 139/76
[2021-11-16 16:20] VITALS: BP 116/69
[2021-11-16 18:02] VITALS: BP 132/67
[2021-11-16] MEDS: ATORVASTATIN CALCIUM 40 MG TABLET PO SCH (20:02)
[2021-11-16] MEDS: QUEtiapine FUMARATE 300 MG TABLET PO SCH (20:02)
[2021-11-16] MEDS: ZOLPIDEM TARTRATE 10 MG TABLET PO PRN (20:39)
[2021-11-16 21:28] VITALS: BP 140/78
[2021-11-17 02:02] VITALS: BP 145/86
[2021-11-17] MEDS: OxyCODONE HCL/ACETAMINOPHEN 10-325 MG TABLET PO PRN ×3 (02:02→10:04)
[2021-11-17 05:15] VITALS: BP 148/85
[2021-11-17] MEDS: LORazepam 2 MG TABLET PO PRN (05:16)
[2021-11-17 06:04] VITALS: BP 135/78
[2021-11-17] MEDS: CARISOPRODOL 350 MG TABLET PO SCH (08:05)
[2021-11-17] MEDS: AmLODIPine BESYLATE 10 MG TABLET PO SCH (08:05)
[2021-11-17] MEDS: METOPROLOL TARTRATE 50 MG TABLET PO SCH (08:05)
[2021-11-17] MEDS: QUEtiapine FUMARATE 200 MG TABLET PO SCH (08:05)
[2021-11-17] MEDS: ASPIRIN 81 MG DR TABLET PO SCH (08:06)
[2021-11-17] MEDS ORDERED: ASPI-1444 PO (08:34)
[2021-11-17] MEDS ORDERED: METO50 PO (08:35)
[2021-11-17] MEDS ORDERED: CARI-493 PO (08:35)
[2021-11-17 09:54] VITALS: BP 164/81
[2021-11-17] MEDS ORDERED: QUET300T19 PO (10:11)
[2021-11-17] MEDS ORDERED: QUET200T30 PO (10:11)
== END 2021-11-17 11:26 | disposition home or self-care (01) | DRG 750 ==
LOC: EMS 09:23 → 3EI 13:54
PROVIDERS: ADMIT Psychiatry & Neurology Psychiatry; ATTEND Psychiatry & Neurology Psychiatry
DX: F25.1 Schizoaffective disorder, depressive type (principal); E11.9 Type 2 diabetes mellitus without complications; E66.9 Obesity, unspecified; Z68.36 Body mass index [BMI] 36.0-36.9, adult; E78.5 Hyperlipidemia, unspecified; I10 Essential (primary) hypertension; J44.9 Chronic obstructive pulmonary disease, unspecified; K21.9 Gastro-esophageal reflux disease without esophagitis; M19.90 Unspecified osteoarthritis, unspecified site; G89.29 Other chronic pain; M54.9 Dorsalgia, unspecified; F99 Mental disorder, not otherwise specified; F17.210 Nicotine dependence, cigarettes, uncomplicated; Z20.822 Contact with and (suspected) exposure to COVID-19; F11.20 Opioid dependence, uncomplicated; Z79.84 Long term (current) use of oral hypoglycemic drugs; Z81.8 Family history of other mental and behavioral disorders; Z91.51 Personal history of suicidal behavior; Z59.00 Homelessness unspecified; Z88.8 Allergy status to other drugs, medicaments and biological substances; Z79.82 Long term (current) use of aspirin
CPT/HCPCS: 80053; 85025; 99285; G0480

== ENCOUNTER 2021-12-10 08:27 | Inpatient (IN) | payer MEDICAID ==
[~2021-12-10] VITALS: Ht 188 cm; Wt 125.7 kg
[~2021-12-10 08:27] MED LIST changes: +ASPI-1444 PO; +CARI-493 PO; -DOCU-385 PO; -GABA-1181 PO; -LISI-894 PO; -LORA10TA7 PO; -METF-1211 PO; -METO-558 PO; +METO50 PO; -OMEP20 PO; -QUET200T PO; +QUET200T30 PO; +QUET300T19 PO; -QUET300T2 PO
[2021-12-10 08:56] LABS: BASOPHILS % (AUTO) 0.4 % (0.0-2.0); EOSINOPHILS % (AUTO) 4.3 % (1.0-6.0); HEMATOCRIT 38.7 % (41-53); HEMOGLOBIN 12.9 g/dL (13.5-17.5); LYMPHOCYTES # (AUTO) 2.3 K/uL (1.0-4.8); LYMPHOCYTES % (AUTO) 31.4 % (22.0-44.0); MEAN CORPUSCULAR HEMOGLOBIN 30.5 pg (26.0-34.0); MEAN CORPUSCULAR HGB CONC 33.4 G/dL (31.0-37.0); MEAN CORPUSCULAR VOLUME 92 fL (80-100); MONOCYTES # (AUTO) 0.6 K/uL (0.1-1.0); NEUTROPHILS # (AUTO) 4.1 K/uL (1.8-7.7); NEUTROPHILS % (AUTO) 55.9 % (40.0-70.0); PLATELET COUNT (AUTO) 360 K/uL (150-450); RED BLOOD CELL COUNT(AUTO) 4.23 MIL/uL (4.50-5.90); RED CELL DISTRIBUTION WIDTH 14.1 % (11.5-14.5)
[2021-12-10 09:06] LABS: ANION GAP 9 mmol/L (8-16); CALCIUM, TOTAL 8.8 mg/dL (8.8-10.5); CARBON DIOXIDE 25 mmol/L (22-29); CHLORIDE 105 mmol/L (98-107); CREATININE 1.74 mg/dL (0.60-1.30); GLOMERULAR FILTR. RATE CALC 49 mL/min (>60); GLUCOSE,RANDOM 125 mg/dL (70-110); SODIUM SERUM 139 mmol/L (136-145); UREA NITROGEN, BLOOD 19 mg/dL (7-18)
[2021-12-10 09:12] LABS: ALANINE AMINOTRANSFERASE 27 U/L (12-78); ALBUMIN 3.6 g/dL (3.4-5.0); ALKALINE PHOSPHATASE 142 U/L (46-116); ASPARTATE AMINOTRANSFERASE 18 U/L (15-37); BILIRUBIN,TOTAL 0.5 mg/dL (0.1-1.0); TOTAL PROTEIN, SERUM 7.6 g/dL (6.4-8.2)
[2021-12-10] MEDS ORDERED: QUEtiapine FUMARATE 100 MG TABLET PO ONE (09:30)
[2021-12-10] MEDS ORDERED: QUEtiapine FUMARATE 100 MG TABLET PO PRN (10:15)
[2021-12-10 10:20] LABS: AMPHET/METH SCREEN,URINE POSITIVE (NEGATIVE); BARBITURATE SCREEN, URINE NEGATIVE (NEGATIVE); BENZODIAZEPINES SCREEN,URINE NEGATIVE (NEGATIVE); CANNABINOID SCREEN,URINE POSITIVE (NEGATIVE); COCAINE SCREEN,URINE NEGATIVE (NEGATIVE); METHADONE SCREEN, URINE NEGATIVE (NEGATIVE); OPIATE SCREEN,URINE NEGATIVE (NEGATIVE); PHENCYCLIDINE SCREEN,URINE NEGATIVE (NEGATIVE)
[2021-12-10 10:32] LABS: COVID AG,FIA SOURCE NASAL SWAB
[2021-12-10] MEDS: LORazepam 2 MG TABLET PO PRN ×2 (10:50→15:02)
[2021-12-10] MEDS ORDERED: ACETAMINOPHEN 325 MG TABLET PO PRN (15:15)
[2021-12-10 16:02] VITALS: BP 140/79
[2021-12-10] MEDS: CARISOPRODOL 350 MG TABLET PO SCH (16:02)
[2021-12-10] MEDS: OxyCODONE HCL/ACETAMINOPHEN 5-325 MG TABLET PO PRN (16:03)
[2021-12-10 16:15] VITALS: BP 142/83
[2021-12-10] MEDS: QUEtiapine FUMARATE 300 MG TABLET PO SCH (21:08)
[2021-12-11 00:48] VITALS: BP 139/78
[2021-12-11 02:43] VITALS: BP 134/79
[2021-12-11] MEDS: OxyCODONE HCL/ACETAMINOPHEN 5-325 MG TABLET PO PRN ×3 (02:46→22:44)
[2021-12-11 08:10] VITALS: BP 139/86
[2021-12-11] MEDS: QUEtiapine FUMARATE 200 MG TABLET PO SCH (08:13)
[2021-12-11] MEDS: CARISOPRODOL 350 MG TABLET PO SCH ×3 (08:14→16:34)
[2021-12-11] MEDS: LORazepam 2 MG TABLET PO PRN ×4 (09:31→23:54)
[2021-12-11 10:51] VITALS: BP 140/79
[2021-12-11 16:10] VITALS: BP 157/92
[2021-12-11] MEDS: ZOLPIDEM TARTRATE 10 MG TABLET PO PRN (20:13)
[2021-12-11] MEDS: QUEtiapine FUMARATE 300 MG TABLET PO SCH (20:13)
[2021-12-11 22:44] VITALS: BP 144/88
[2021-12-12] VITALS: BP 137/83
[2021-12-12] MEDS: QUEtiapine FUMARATE 200 MG TABLET PO SCH (08:06)
[2021-12-12] MEDS: CARISOPRODOL 350 MG TABLET PO SCH ×3 (08:08→17:00)
[2021-12-12 08:18] VITALS: BP 140/90
[2021-12-12] MEDS: OxyCODONE HCL/ACETAMINOPHEN 5-325 MG TABLET PO PRN ×2 (08:55→18:15)
[2021-12-12] MEDS: LORazepam 2 MG TABLET PO PRN (11:57)
[2021-12-12 18:15] VITALS: BP 129/90
[2021-12-12] MEDS: QUEtiapine FUMARATE 300 MG TABLET PO SCH (20:03)
[2021-12-12] MEDS: ZOLPIDEM TARTRATE 10 MG TABLET PO PRN (20:39)
[2021-12-13 02:36] VITALS: BP 150/72
[2021-12-13] MEDS: OxyCODONE HCL/ACETAMINOPHEN 5-325 MG TABLET PO PRN (02:39)
[2021-12-13] MEDS: LORazepam 2 MG TABLET PO PRN (04:58)
[2021-12-13] MEDS: QUEtiapine FUMARATE 200 MG TABLET PO SCH (08:06)
[2021-12-13] MEDS: CARISOPRODOL 350 MG TABLET PO SCH (08:06)
[2021-12-13 08:19] VITALS: BP 140/79
[2021-12-13] MEDS ORDERED: QUET200T30 PO (09:19)
[2021-12-13] MEDS ORDERED: QUET300T19 PO (09:19)
[2021-12-13] MEDS ORDERED: CARI-493 PO (09:19)
== END 2021-12-13 12:00 | disposition home or self-care (01) | DRG 750 ==
LOC: EMS 08:31 → B2S 10:50
PROVIDERS: ADMIT Psychiatry & Neurology Psychiatry; ATTEND Psychiatry & Neurology Psychiatry
DX: F25.1 Schizoaffective disorder, depressive type (principal); N17.9 Acute kidney failure, unspecified; D64.9 Anemia, unspecified; Z20.822 Contact with and (suspected) exposure to COVID-19; E78.5 Hyperlipidemia, unspecified; F12.10 Cannabis abuse, uncomplicated; F15.10 Other stimulant abuse, uncomplicated; G89.29 Other chronic pain; F17.210 Nicotine dependence, cigarettes, uncomplicated; I10 Essential (primary) hypertension; K21.9 Gastro-esophageal reflux disease without esophagitis; R45.850 Homicidal ideations; Z79.899 Other long term (current) drug therapy; Z88.8 Allergy status to other drugs, medicaments and biological substances; Z81.8 Family history of other mental and behavioral disorders; Z91.51 Personal history of suicidal behavior
CPT/HCPCS: 80053; 85025; 87081; 99285; G0480